=== PATIENT | female | born 1950 | race Caucasian/White ===

== ENCOUNTER 2016-10-10 15:43 | Emergency (ER) | payer OTHER, BC ==
[2016-10-10 15:47] VITALS: TEMP 97.8; BMI 30.9
--- NOTE | 2016-10-10 15:50 | PDOC ---
Rapid Medical Evaluation Time Seen by Provider: 10/10/16 15:44 Medical Evaluation: Allergies Allergy/AdvReac Type Severity Reaction Status Date / Time No Known Allergies Allergy Verified 04/22/14 17:44 10/10/16 15:44 Pt comes with feeling dizzy, lightheaded, and nauseous that began last night. The feeling resolved on it's own. Then her dizzy feeling returned around 11AM today; She feels fatigued and she vomited en route to the hospital. Yesterday routine she went to PMD [facility] but no results yet. She is on eliquis and metoprolol. She has a history of vertigo and this is not like her vertigo-- she has no room spinning now. She is afebrile now. 3 weeks ago pt was sitting on the side of her bed and she felt dizzy and she fell to the ground. She had a CT scan the next day ordered outpatient by her PMD , and that was normal. She will have UA and EKG done in triage. Pt keeps telling her daughter that she doesnt "feel right." She will require workup. Consider testing her TSH. EKG demonstrates AFIB with long pauses. Her site worker is Dr. West. She will require cardio evaluation.
[2016-10-10 16:25] LABS: URINE APPEARANCE SLCLOUDY; URINE BILIRUBIN NEGATIVE (NEGATIVE); URINE COLOR YELLOW; URINE GLUCOSE (UA) NEGATIVE (NEGATIVE); URINE KETONE NEGATIVE (NEGATIVE); URINE NITRITE NEGATIVE (NEGATIVE); URINE UROBILINOGEN NEGATIVE E.U./dl (0.2-1.0)
[2016-10-10 16:29] LABS: URINE BLOOD 1+ (NEGATIVE); URINE LEUK ESTERASE 3+ (NEGATIVE); URINE PROTEIN 2+ (NEGATIVE)
[2016-10-10 16:30] LABS: URINE MUCUS RARE; URINE RBC 17 /hpf (0-3); URINE WBC 25 /hpf (3-5)
[2016-10-10] MEDS ORDERED: SODIUM CHLORIDE 1,000 ML IV STA (16:57)
[2016-10-10] MEDS ORDERED: ONDANSETRON 4 MG/2 ML VIAL IVPUSH ONE (16:57)
[2016-10-10] MEDS ORDERED: MECLIZINE HCL 25 MG TABLET (FP) PO ONE ×2 (16:58→19:20)
[2016-10-10] MEDS ORDERED: MECLIZINE HCL 25 MG TABLET (FP) ONE ×2 (17:32→19:35)
[2016-10-10] MEDS ORDERED: ONDANSETRON 4 MG/2 ML VIAL ONE (17:33)
[2016-10-10 17:54] LABS: BASOPHIL 0.2 % (0-2.0); EOSINOPHIL 0.2 % (0-4.5); MCH 31.2 pg (25.7-33.7); MCHC 33.1 g/dl (32.0-36.0); MEAN CELL VOLUME 94.4 fl (80-96); MEAN PLT VOLUME 8.9 fl (7.5-11.1); NEUTROPHILS 81.7 % (42.8-82.8); PLATELET COUNT 153 K/MM3 (134-434); RDW 12.6 % (11.6-15.6); WHITE BLOOD COUNT 9.1 K/mm3 (4.0-10.0)
--- NOTE | 2016-10-10 17:59 | PDOC ---
History of Present Illness - General History Source: Patient Exam Limitations: No Limitations - History of Present Illness Initial Comments: 10/10/16 18:09 The patient is a 66 year old female, with a significant past medical history of borderline diabetes, vertigo, afib, who presents to the emergency department with dizziness and nausea since yesterday. Daughter reports the patient also has chief complaints of lightheadedness/fatigue and had one episode of vomiting en route to the ER. Daughter also reports her symptoms are often made worse when she stands and walks. Daughter reports the patient collapsing off the edge of the bed hitting her head about 3 weeks ago, she had a negative head CT. She denies recent fevers, chills, headache or dizziness. She denies recent diarrhea or constipation. Allergies: NKA Social History: Nonsmoker. Denies EtOH use and drug use. Family history: Denies Commissary Worker: <Carrillo Bañuelos - Last Filed: 10/10/16 18:09> - General History Source: Patient Exam Limitations: No Limitations <Keri Rosales - Last Filed: 10/11/16 21:12> - General Chief Complaint: Lightheaded Stated Complaint: DIZZINESS, FATIGUE (PCP SENT) Time Seen by Provider: 10/10/16 15:44 Past History <Carrillo Bañuelos - Last Filed: 10/10/16 18:09> - Past Medical History Anemia: No Asthma: No Cancer: No Cardiac Disorders: Yes (PERSISTENT ATRIAL FIBRILLATION) CVA: No COPD: No CHF: No Dementia: No Diabetes: Yes GI Disorders: No Disorders: No HTN: Yes Hypercholesterolemia: Yes Liver Disease: No Seizures: No Thyroid Disease: Yes (H/O MULTINODULAR GOITER) - Surgical History Abdominal Surgery: No Appendectomy: No Cardiac Surgery: Yes (heart valve emboli ablasion) Cholecystectomy: No Lung Surgery: No Neurologic Surgery: No Orthopedic Surgery: No - Psycho/Social/Smoking Cessation Hx Anxiety: No Suicidal Ideation: No Smoking Status: No Smoking History: Never smoked Number of Cigarettes Smoked Daily: 0 Information on smoking cessation initiated: No Hx Alcohol Use: No Drug/Substance Use Hx: No Substance Use Type: None Hx Substance Use Treatment: No <Keri Rosales - Last Filed: 10/11/16 21:12> - Past Medical History Allergies/Adverse Reactions: Allergies Allergy/AdvReac Type Severity Reaction Status Date / Time No Known Allergies Allergy Verified 10/10/16 15:47 Home Medications: Ambulatory Orders Apixaban [Eliquis] 5 mg PO BID 10/10/16 Meclizine HCl [Antivert -] 25 mg PO TID #30 tablet 10/10/16 Metoprolol Succinate [Toprol Xl] 50 mg PO DAILY 10/10/16 Ondansetron [Zofran *Odt*] 4 mg SL TID #30 od.tablet 10/10/16 Review of Systems - Review of Systems Able to Perform ROS?: Yes Comments:: 10/10/16 18:09 GENERAL/CONSTITUTIONAL: +weakness and dizziness . No: fever, chills, loss of appetite. HEAD, EYES, EARS, NOSE AND THROAT: No: change in vision, ear pain, discharge, sore throat, throat swelling. CARDIOVASCULAR: + lightheadedness No: chest pain, palpitations, syncope RESPIRATORY: No: cough, shortness of breath, wheezing, hemoptysis, stridor. GASTROINTESTINAL:+nausea. No: vomiting, diarrhea, abdominal cramping, rectal bleeding, constipation. GENITOURINARY: No: dysuria, hematuria, frequency, urgency, flank pain. MUSCULOSKELETAL: No: back pain, neck pain, joint pain, muscle swelling or pain SKIN : No: lesions, pallor, rash or easy bruising. NEUROLOGIC: No: headache, vertigo, paresthesias, ENDOCRINE: No: unexplained weight gain or loss HEMATOLOGIC/LYMPHATIC: No: anemia, easy bleeding, swelling nodes. <Carrillo Bañuelos - Last Filed: 10/10/16 18:09> *Physical Exam - Vital Signs Last Vital Signs Temp Pulse Resp BP Pulse Ox 97.8 F 85 18 153/92 99 10/10/16 15:44 10/10/16 15:44 10/10/16 15:44 10/10/16 15:44 10/10/16 15:44 - Physical Exam Comments: 10/10/16 18:09 GENERAL: The patient looks ill appearing. HEAD: Normal with no signs of trauma. EYES: PERRLA, EOMI, sclera anicteric, conjunctiva clear. No nystagmus. ENT: Ears normal, nares patent, oropharynx clear without exudates. Moist mucous membranes. NECK: Normal range of motion, supple without lymphadenopathy, JVD, or masses. LUNGS: Breath sounds equal, clear to auscultation bilaterally. No wheezes, and no crackles. HEART: Irregular rate and rhythm, normal S1 and S2 without murmur, rub or gallop. ABDOMEN: Soft, nontender, normoactive bowel sounds. No guarding, no rebound. No masses palpable. EXTREMITIES: Normal range of motion, no edema. No clubbing or cyanosis. No erythema, or tenderness. NEUROLOGICAL: Cranial nerves II through XII grossly intact. Normal speech. No focal neurological deficits. Motor and sensation was normal in all extremities. MUSCULOSKELETAL: Back non-tender to palpation, no CVA tenderness SKIN: Warm, Dry, normal turgor, no rashes or lesions noted. <Carrillo Bañuelos - Last Filed: 10/10/16 18:09> - Vital Signs Last Vital Signs Temp Pulse Resp BP Pulse Ox 97.8 F 85 18 153/92 99 10/10/16 15:44 10/10/16 15:44 10/10/16 15:44 10/10/16 15:44 10/10/16 15:44 <Keri Rosales - Last Filed: 10/11/16 21:12> Heart Score/ECG Review #1 ECG reviewed & interpreted by me at: 18:38 10/10/16 18:38 Atrial fibrillation, rate of 83 bpm, intervals normal including QRS: 86 MS, QTC [address] elevations or depressions, T waves flattened inferiorly <Keri Rosales - Last Filed: 10/11/16 21:12> ED Treatment Course - LABORATORY CBC & Chemistry Diagram: 10/10/16 17:30 10/10/16 17:30 - ADDITIONAL ORDERS Additional order review: Laboratory Results 10/10/16 15:41 Urine Color Yellow Urine Appearance Slcloudy Urine pH 5.0 D Ur Specific [place] 1.019 Urine Protein 2+ H Urine Glucose (UA) Negative Urine Ketones Negative Urine Blood 1+ H Urine Nitrite Negative Urine Bilirubin Negative Urine Urobilinogen Negative Ur Leukocyte Esterase 3+ H D Urine RBC 17 Urine WBC 25 Ur Epithelial Cells Few Urine Mucus Rare 10/10/16 17:30 RBC 4.58 MCV 94.4 MCHC 33.1 RDW 12.6 MPV 8.9 Neutrophils % 81.7 D Lymphocytes % 15.3 D Monocytes % 2.6 L Eosinophils % 0.2 Basophils % 0.2 - Medications Given in the ED: ED Medications Discontinued Medications Generic Name Dose Route Start Last Admin Trade Name Freq PRN Reason Stop Dose Admin Meclizine HCl 25 mg 10/10/16 16:58 10/10/16 17:49 Antivert - PO 10/10/16 16:59 25 mg ONCE ONE Administration Ondansetron HCl 4 mg 10/10/16 16:57 10/10/16 17:49 Zofran Injection IVPUSH 10/10/16 16:58 4 mg ONCE ONE Administration <Carrillo Bañuelos - Last Filed: 10/10/16 18:09> - LABORATORY CBC & Chemistry Diagram: 10/10/16 17:30 10/10/16 17:30 - ADDITIONAL ORDERS Additional order review: Laboratory Results 10/10/16 15:41 Urine Color Yellow Urine Appearance Slcloudy Urine pH 5.0 D Ur Specific [place] 1.019 Urine Protein 2+ H Urine Glucose (UA) Negative Urine Ketones Negative Urine Blood 1+ H Urine Nitrite Negative Urine Bilirubin Negative Urine Urobilinogen Negative Ur Leukocyte Esterase 3+ H D Urine RBC 17 Urine WBC 25 Ur Epithelial Cells Few Urine Mucus Rare - RADIOLOGY Radiology Studies Ordered: Category Date Time Status HEAD CT WITHOUT CONTRAST [CT] Stat CT Scan 10/10/16 16:57 Ordered - Medications Given in the ED: ED Medications Discontinued Medications Generic Name Dose Route Start Last Admin Trade Name Freq PRN Reason Stop Dose Admin Meclizine HCl 25 mg 10/10/16 16:58 10/10/16 17:49 Antivert - PO 10/10/16 16:59 25 mg ONCE ONE Administration Ondansetron HCl 4 mg 10/10/16 16:57 10/10/16 17:49 Zofran Injection IVPUSH 10/10/16 16:58 4 mg ONCE ONE Administration <Keri Rosales - Last Filed: 10/11/16 21:12> Medical Decision Making - Medical Decision Making 10/10/16 17:59 A portion of this note was documented by scribe services under my direction. I have reviewed the details of the note, within reason, and agree with the documentation with the following case summary and management plan written by me. Nursing documentation reviewed and incorporated into medical decision making This is a 66-year-old female with a history of vertigo, [id number] diabetes who presents emergency department with a complaint of "not feeling well " with her daughter. Pt has not been feeling well all day She denies chest pain She denies palpitations, shortness of breath She denies abdominal pain Pt feels nauseous Pt has not vomited Pt feels lightheaded Pt states it is NOT similar to her prior episodes of vertigo as she has no spinning sensation Pt states her symptoms worsen when she stands or lays flat 10/10/16 18:37 Laboratory Tests 10/10/16 10/10/16 10/10/16 15:41 17:30 17:30 WBC 9.1 D Hgb 14.3 Hct 43.2 Plt Count 153 Neutrophils % 81.7 D Lymphocytes % 15.3 D BUN 14 Creatinine 0.6 Random Glucose 130 H Creatine Kinase 57 Troponin I < 0.02 B-Natriuretic Peptide 853.25 H Urine Blood 1+ H Urine Nitrite Negative Ur Leukocyte Esterase 3+ H D Urine RBC 17 Urine WBC 25 10/10/16 18:[address] pending 10/10/16 19:[address] Matilda Villaseñor. CT read as negative, no acute pathology Once pt feels better Can discharge to home Pt can follow up tomorrow with Dr Cole's office Clinical Impression: dizziness Upon re assessment, minimal improvement Will give: Reglan, more IVF, Meclizine Pt signed out to Dr Mejnivar Re assessment If improved can go home If remains the same, contact [facility] re: admission <Keri Rosales - Last Filed: 10/11/16 21:12> *DC/Admit/Observation/Transfer - Attestations Scribe Attestion: 10/10/16 18:09 Documentation prepared by Carrillo Bañuelos, acting as medical territory manager for Keri Rosales MD. <Carrillo Bañuelos - Last Filed: 10/10/16 18:09> - Discharge Dispostion Admit: No <Keri Rosales - Last Filed: 10/11/16 21:12> Diagnosis at time of Disposition: Dizziness - Discharge Dispostion Disposition: HOME Condition at time of disposition: Stable - Prescriptions Prescriptions: Meclizine HCl [Antivert -] 25 mg PO TID #30 tablet Ondansetron [Zofran *Odt*] 4 mg SL TID #30 od.tablet - Referrals Referrals: Khris Cole MD [Primary Care Provider] - - Patient Instructions Printed Discharge Instructions: DI for Dizziness-Nonvertigo Additional Instructions: Lizbet Obrigado por ter vindo ao ER hoje Seus exames de sangue kell normais A tomografia computadorizada no apresenta noa alteraes Analisei os seus resultados com o Dr. Cole Shayna afirma, voc pode ir para casa quando voc est se sentindo melhor Voc pode v-lo no escritrio amanh! Lizbet Thank you for coming in to the ER today Your blood tests were normal Your CT scan shows no new changes I have reviewed your results with Dr Cole He states, you can go home when you are feeling better You can see him in the office tomorrow!
[2016-10-10 18:20] LABS: AMYLASE 44 U/L (25-115); ANION GAP 10 (8-16); CO2 26 mmol/L (21-32); CREATININE 0.6 mg/dL (0.55-1.02); GLUCOSE,RANDOM 130 mg/dL (74-106); SGOT/AST 22 U/L (15-37); SGPT/ALT 35 U/L (12-78)
[2016-10-10 18:25] LABS: ALK PHOS 95 U/L (45-117); BILIRUBIN,TOTAL 0.5 mg/dL (0.2-1.0); TOT PROT 7.5 g/dl (6.4-8.2); TROPONIN I < 0.02 ng/ml (0.00-0.05)
[2016-10-10] MEDS ORDERED: METOCLOPRAMIDE HCL INJECTION 10 MG/2 ML VIAL IVPB ONE (19:20)
[2016-10-10] MEDS ORDERED: METOCLOPRAMIDE HCL INJECTION 10 MG/2 ML VIAL ONE (19:35)
[2016-10-10 19:52] VITALS: BP 145/99; PULSE 100
--- NOTE | 2016-10-10 21:34 | PDOC ---
*Physical Exam - Vital Signs Last Vital Signs Temp Pulse Resp BP Pulse Ox 97.8 F 100 H 18 145/99 100 10/10/16 15:44 10/10/16 19:51 10/10/16 19:51 10/10/16 19:51 10/10/16 19:51 ED Treatment Course - LABORATORY CBC & Chemistry Diagram: 10/10/16 17:30 10/10/16 17:30 - ADDITIONAL ORDERS Additional order review: Laboratory Results 10/10/16 10/10/16 17:30 15:41 Sodium 136 Potassium 4.1 Chloride 100 Carbon Dioxide 26 Anion Gap 10 BUN 14 Creatinine 0.6 Creat Clearance w eGFR > 60 Random Glucose 130 H Calcium 9.0 Total Bilirubin 0.5 AST 22 ALT 35 Alkaline Phosphatase 95 Creatine Kinase 57 Troponin I < 0.02 B-Natriuretic Peptide 853.25 H Total Protein 7.5 Albumin 4.0 Total Amylase 44 Lipase 129 Urine Color Yellow Urine Appearance Slcloudy Urine pH 5.0 D Ur Specific [place] 1.019 Urine Protein 2+ H Urine Glucose (UA) Negative Urine Ketones Negative Urine Blood 1+ H Urine Nitrite Negative Urine Bilirubin Negative Urine Urobilinogen Negative Ur Leukocyte Esterase 3+ H D Urine RBC 17 Urine WBC 25 Ur Epithelial Cells Few Urine Mucus Rare 10/10/16 17:30 RBC 4.58 MCV 94.4 MCHC 33.1 RDW 12.6 MPV 8.9 Neutrophils % 81.7 D Lymphocytes % 15.3 D Monocytes % 2.6 L Eosinophils % 0.2 Basophils % 0.2 - Medications Given in the ED: ED Medications Discontinued Medications Generic Name Dose Route Start Last Admin Trade Name Angela PRN Reason Stop Dose Admin Meclizine HCl 25 mg 10/10/16 16:58 10/10/16 17:49 Antivert - PO 10/10/16 16:59 25 mg ONCE ONE Administration Meclizine HCl 50 mg 10/10/16 19:20 10/10/16 19:51 Antivert - PO 10/10/16 19:21 50 mg ONCE ONE Administration Metoclopramide HCl 10 mg 10/10/16 19:20 10/10/16 19:51 Reglan Injection - IVPB 10/10/16 19:21 10 mg ONCE ONE Administration Ondansetron HCl 4 mg 10/10/16 16:57 10/10/16 17:49 Zofran Injection IVPUSH 10/10/16 16:58 4 mg ONCE ONE Administration Medical Decision Making - Medical Decision Making 10/10/16 21:31 Pt now feels better. Pt will be discharged Rx Meclizine 25mg PO, Zofran 4mg PO. Pt to follow up her pcp *DC/Admit/Observation/Transfer Diagnosis at time of Disposition: Dizziness - Discharge Dispostion Disposition: HOME Condition at time of disposition: Stable Admit: No - Prescriptions Prescriptions: Meclizine HCl [Antivert -] 25 mg PO TID #30 tablet Ondansetron [Zofran *Odt*] 4 mg SL TID #30 od.tablet - Referrals Referrals: Khris Cole MD [Primary Care Provider] - - Patient Instructions Printed Discharge Instructions: DI for Dizziness-Nonvertigo Additional Instructions: Lizbet Obrigado por ter vindo ao ER hoje Seus exames de sangue kell normais A tomografia computadorizada no apresenta noa alteraes Analisei os seus resultados com o Dr. Cole Shayna afirma, voc pode ir para casa quando voc est se sentindo melhor Voc pode v-lo no escritrio amanh! Lizbet Thank you for coming in to the ER today Your blood tests were normal Your CT scan shows no new changes I have reviewed your results with Dr Cole He states, you can go home when you are feeling better You can see him in the office tomorrow! - Post Discharge Activity
--- NOTE | 2016-10-11 14:10 | EKG ---
Test Reason : Blood Pressure : / mmHG Vent. Rate : 083 BPM Atrial Rate : 107 BPM P-R Int : 000 ms QRS Dur : 086 ms QT Int : 390 ms P-R-T Axes : 000 051 031 degrees QTc Int : 458 ms ATRIAL FIBRILLATION NONSPECIFIC ST ABNORMALITY ABNORMAL ECG WHEN COMPARED WITH ECG OF 22-APR-2014 18:19, NO SIGNIFICANT CHANGE WAS FOUND Confirmed by KEITH FOFANA MD ([id number]) on 10/11/2016 2:09:57 PM Referred By: Confirmed By:KEITH FOFANA MD
== END 2016-10-10 21:48 | disposition home or self-care (01) ==
LOC: JER 15:43
PROC: 3E033GC Introduction of Other Therapeutic Substance into Peripheral Vein, Percutaneous Approach (ICD-10-PCS; principal; 2016-10-10)
PROC: 3E0337Z Introduction of Electrolytic and Water Balance Substance into Peripheral Vein, Percutaneous Approach (ICD-10-PCS; 2016-10-10)
DX: R42 Dizziness and giddiness (principal); I48.91 Unspecified atrial fibrillation; I10 Essential (primary) hypertension; E78.00 Pure hypercholesterolemia, unspecified; E07.9 Disorder of thyroid, unspecified; I51.9 Heart disease, unspecified
CPT/HCPCS: 36415; 70450-TC; 71020-TC; 80053; 81003; 81015; 82150; 82550; 83690; 83880; 84484; 85025; 87086; 93005; 93010; 96361; 96374; 96375; 99283-25

== ENCOUNTER 2017-05-11 11:56 | Inpatient (IN) | payer OTHER, BC ==
[2017-05-11 12:06] VITALS: BMI 29.2
--- NOTE | 2017-05-11 12:30 | PDOC ---
History of Present Illness - General Chief Complaint: Respiratory Stated Complaint: SOB Time Seen by Provider: 05/11/17 12:28 - History of Present Illness Initial Comments: 66 year old Uzbek speaking female with PMH of Afib (on eliquis), HTN, and borderline diabetes presenting with 10 days of lethargy, productive cough, nausea, and myalgias. Shew was seen by Dr. Cole 10 days prior and given some antibiotic despite a negative CXR. Does nto recall the antibiotic name but admits to some minor relief and cough improvement while on it. She was seen by [facility] today who recommended she come to the ED for further evaluation. Denies vomiting, chest pain, diarrhea, urinary symptoms, fevers, or sick contacts. Her last trip to [facility] was in January. Has not gotten her flu shot this year. 05/11/17 12:43 Past History - Past Medical History Allergies/Adverse Reactions: Allergies Allergy/AdvReac Type Severity Reaction Status Date / Time No Known Allergies Allergy Verified 05/11/17 14:02 Home Medications: Ambulatory Orders Apixaban [Eliquis] 5 mg PO BID 10/10/16 Metoprolol Succinate [Toprol Xl] 50 mg PO DAILY 10/10/16 Fluticasone Prop 0.05% Nasal [Flonase -] 1 spray NS DAILY 05/11/17 Anemia: No Asthma: No Cancer: No Cardiac Disorders: Yes (PERSISTENT ATRIAL FIBRILLATION) CVA: No COPD: No CHF: No Dementia: No Diabetes: Yes GI Disorders: No Disorders: No HTN: Yes Hypercholesterolemia: Yes Liver Disease: No Seizures: No Thyroid Disease: Yes (H/O MULTINODULAR GOITER) - Surgical History Abdominal Surgery: No Appendectomy: No Cardiac Surgery: Yes (heart valve emboli ablasion) Cholecystectomy: No Lung Surgery: No Neurologic Surgery: No Orthopedic Surgery: No - Suicide/Smoking/Psychosocial Hx Smoking Status: No Smoking History: Never smoked Number of Cigarettes Smoked Daily: 0 Hx Alcohol Use: No Drug/Substance Use Hx: No Substance Use Type: None Hx Substance Use Treatment: No Review of Systems - Review of Systems Constitutional: No: Chills, Diaphoresis, Fever HEENTM: No: Eye Pain, Blurred Vision, Tearing Respiratory: Yes: Cough, Shortness of Breath, Wheezing Cardiac (ROS): No: Palpitations, Chest Tightness ABD/GI: Yes: Nausea, Poor Appetite. No: Constipated, Diarrhea, Vomiting : No: Burning, Dysuria Neurological: No: Headache *Physical Exam - Vital Signs Last Vital Signs Temp Pulse Resp BP Pulse Ox 98.2 F 94 H 18 127/65 95 05/11/17 12:03 05/11/17 12:03 05/11/17 12:03 05/11/17 12:03 05/11/17 12:03 - Physical Exam General Appearance: Yes: Nourished, Appropriately Dressed. No: Apparent Distress HEENT: positive: EOMI, WILSON, Normal Voice. negative: Normal ENT Inspection ( Mucous in the posterior oropharynx with slightly dry mucous membranes) Neck: positive: Trachea midline, Normal Thyroid, Supple. negative: Tender, Rigid Respiratory/Chest: negative: Chest Tender, Lungs Clear (Rhonchi and wheezes bilaterally ), Normal Breath Sounds, Respiratory Distress, Accessory Muscle Use ED Treatment Course - LABORATORY CBC & Chemistry Diagram: 05/11/17 13:00 05/11/17 13:00 Medical Decision Making - Medical Decision Making 66 year old female with reparatory symptoms and rhonchi with wheezing presetnitn for her PCP's office. WBC 12.1. CURB 65 score only positive for age so overall low risk. CXR not showing any significant pathology. BNP pending. Patient still rhonchorous after a dose of nebs and steroids. Will redose nebs and admit to obs with a chest CT without con. Will give one dose abx as well for presumed PNA. 05/11/17 14:33 *DC/Admit/Observation/Transfer Diagnosis at time of Disposition: PNA (pneumonia) - Discharge Dispostion Condition at time of disposition: Stable Admit: Yes
[2017-05-11] MEDS ORDERED: predniSONE 20 MG TABLET (UD) PO ONE (12:44)
[2017-05-11] MEDS ORDERED: ALBUTEROL SO4 2.5/IPRATROPIUM 0.5 INH SOL 3 ML VIAL.NEB. NEB ONE ×4 (12:45→14:48)
[2017-05-11] MEDS ORDERED: SODIUM CHLORIDE 0.9% 1000 ML INFUS.BAG IV ONE (12:58)
[2017-05-11] MEDS ORDERED: predniSONE 20 MG TABLET (UD) ONE (13:14)
[2017-05-11 13:22] LABS: VENOUS BLOOD GAS HCO3 23.3 meq/L (19-25)
[2017-05-11 13:23] LABS: VENOUS PH 7.47 (7.32-7.42)
[2017-05-11 13:23] LABS: BASOPHIL 0.1 % (0-2.0); EOSINOPHIL 0.2 % (0-4.5); MCH 30.4 pg (25.7-33.7); MCHC 32.7 g/dl (32.0-36.0); MEAN CELL VOLUME 92.8 fl (80-96); MEAN PLT VOLUME 9.1 fl (7.5-11.1); NEUTROPHILS 68.2 % (42.8-82.8); PLATELET COUNT 164 K/MM3 (134-434); RDW 12.6 % (11.6-15.6); WHITE BLOOD COUNT 12.3 K/mm3 (4.0-10.0)
[2017-05-11 13:56] LABS: CALCIUM 9.3 mg/dL (8.5-10.1)
[2017-05-11 14:01] LABS: ALK PHOS 113 U/L (45-117); ANION GAP 9 (8-16); BILIRUBIN,TOTAL 1.3 mg/dL (0.2-1.0); CO2 24 mmol/L (21-32); CREATININE 0.6 mg/dL (0.55-1.02); GLUCOSE,RANDOM 99 mg/dL (74-106); SGOT/AST 19 U/L (15-37); SGPT/ALT 41 U/L (12-78); TOT PROT 7.8 g/dl (6.4-8.2)
--- NOTE | 2017-05-11 14:21 | PDOC ---
Attending Attestation - Resident Resident Name: Elroy Bravo - ED Attending Attestation I have performed the following: I have examined & evaluated the patient, The case was reviewed & discussed with the resident, I agree w/resident's findings & plan, Exceptions are as noted - Medical Decision Making 05/11/17 14:18 A portion of this note was written by my scribe, under my supervision. Vital Signs Temp Pulse Resp BP Pulse Ox 98.2 F 94 H 18 127/65 96 05/11/17 12:03 05/11/17 12:03 05/11/17 12:03 05/11/17 12:03 05/11/17 12:30 66-year-old female with past medical history of hypertension, diabetes, coronary disease, atrial fibrillation on eliquis p/w cough x 10 days. Denies sick contacts or recent travels. +productive cough with generalized body aches. No difficulty breathing. Is currently on Day 4 of 5 on azithromycin but not improving. Pt sent in by her doctor. R/o PNA. Sepsis protocol initiated. Chest xray. Labs, reassess. <Mahmaed Fernandes - Last Filed: 05/11/17 14:21> - HPI HPI: 05/11/17 15:03 Patient is a 66 year old female with a significant past medical history of HTN, borderline diabetes, vertigo, afib who presents to the ED with complaints of chronic cough that began 10 days ago. Patient reports cough began 10 days ago while at home with no sign of relief. She reports going to PCP for cough 10 days ago and was prescribed Z pack for cough. Patient states she is on her 5th day of her Z pack with minimal relief. She reports cough is productive with phlegm productive with yellowish coloration. Patient reports she has experienced intermittent nausea, and loss of appetite secondary to cough. She reports experiencing never and slight wheezing secondary to cough. Patient states her grand daughter is also sick. Denies chest pain, SOB. Denies fever, chills, Denies any other symptoms. Allergies: None Surgical history: heart valve emboli ablation Social history: Lives at home with . No smoking. No alcohol. No illicit drugs. PMD: Dr. Cole Mail Processor Dr. Wood - Physicial Exam PE: 05/11/17 15:03 GENERAL: Awake, alert, and fully oriented, in no acute distress HEAD: No signs of trauma EYES: PERRLA, EOMI, sclera anicteric, conjunctiva clear ENT: Auricles normal inspection, hearing grossly normal, nares patent, oropharynx clear without exudates. Moist mucosa NECK: Normal ROM, supple, no lymphadenopathy, JVD, or masses LUNGS: +Wheezing bilaterally. +Bronchus bilaterally Breath sounds equal, clear to auscultation bilaterally. No wheezes, and no crackles HEART: Regular rate and rhythm, normal S1 and S2, no murmurs, rubs or gallops ABDOMEN: Soft, nontender, normoactive bowel sounds. No guarding, no rebound. No masses EXTREMITIES: Normal range of motion, no edema. No clubbing or cyanosis. No cords, erythema, or tenderness NEUROLOGICAL: Cranial nerves II through XII grossly intact. Normal speech, normal gait SKIN: Warm, Dry, normal turgor, no rashes or lesions noted. - Medical Decision Making 05/11/17 15:03 Documentation prepared by Joshua Crouch, acting as medical chief technician for Mahamed Fernandes MD. <Joshua Crouch - Last Filed: 05/11/17 15:03> Heart Score/ECG Review #1 ECG reviewed & interpreted by me at: 13:45 05/11/17 14:21 atrial fibrillation 96, no std/frandy, QTC 492 msec <Mahamed Fernandes - Last Filed: 05/11/17 14:21>
[2017-05-11 14:48] LABS: CPK 40 IU/L (26-192); TROPONIN I < 0.02 ng/ml (0.00-0.05)
--- NOTE | 2017-05-11 16:34 | CONSULT ---
Consult - Alcohol/Substance Use Hx Alcohol Use: No - Smoking History Smoking history: Never smoked Aproximately how many cigarettes per day: 0 Home Medications - Allergies Allergies/Adverse Reactions: Allergies Allergy/AdvReac Type Severity Reaction Status Date / Time No Known Allergies Allergy Verified 05/11/17 14:02 - Home Medications Home Medications: Ambulatory Orders Apixaban [Eliquis] 5 mg PO BID 10/10/16 Metoprolol Succinate [Toprol Xl] 50 mg PO DAILY 10/10/16 Fluticasone Prop 0.05% Nasal [Flonase -] 1 spray NS DAILY 05/11/17 Physical Exam Vital Signs: Vital Signs Temperature 98.2 F 05/11/17 12:03 Pulse Rate 94 H 05/11/17 12:03 Respiratory Rate 18 05/11/17 12:03 Blood Pressure 127/65 05/11/17 12:03 O2 Sat by Pulse Oximetry (%) 96 05/11/17 12:30
[2017-05-11] MEDS ORDERED: AZITHROMYCIN IVPB 250 ML IVPB ONE (16:38)
[2017-05-11] MEDS ORDERED: CEFTRIAXONE 50 ML ONE (16:38)
--- NOTE | 2017-05-11 16:41 | HP ---
Admitting History and Physical - Admission Chief Complaint: 66 yo F initially seen at the office at the office for cough, sweats, weakness She was rx with Zithromax and cough syrup and her xhest Xray was negative. The patient presented with sweats, worsening SOB/BARONE, hypotension, anorrhexia and weakness and dizziness with B/l R>L rales in the LL on auscultation and was sent to ER [facility]. In the ER CBC showed leukocytosis with CXR-increased B/B markings and CT chest NC-bibasilar patchy infiltrates. The patient was admitted for further management History of Present Illness: Chronic A.FIB on Eliquis. HTN History Source: Patient, Medical Record Limitations to Obtaining History: No Limitations - Past Medical History Cardiovascular: Yes: AFIB, HTN Pulmonary: No: Asthma, Cancer, COPD, O2 Dependent, Pulmonary Fibrosis Gastrointestinal: No: Ascites, Cancer, Crohn's Disease, Diverticulitis Hepatobiliary: No: Cirrhosis, Cholelithiasis, Cholecystitis, Choledocholithiasis , Hepatitis A, Hepatitis B, Hepatitis C, Other Renal/: No: Renal Failure, Renal Inusuff, BPH, Cancer, Hematuria, Hemodialysis , Neurogenic Bladder, Renal Calculi, UTI, Other Reproductive: Yes: Postmenopausal Infectious Disease: No: AIDS, C-Diff, Herpes Zoster, HIV, MRSA, STD's, Tuberculosis, VREF, Other Psych: No: Addictions, Anxiety, Bipolar, Depression, Panic, Psychosis, Schizophrenia, Other Rheumatology: No: Fibromyalgia, Gout, Lupus, Rheumatoid Arthritis, Sarcoidosis, Vasculitis, Other Endocrine: No: [place]'s Disease, Sheron's Disease, Diabetes Insipidus, Diabetes Mellitus, Hyperparathyroidism, Hyperthyroidism, Hypothyroidism, Osteopenia, SIADH, Other Dermatology: No: Basal Cell, Cellulitis, Eczema, Melanoma, Psoriasis, Squamous Cell, Other - Smoking History Smoking history: Never smoked Aproximately how many cigarettes per day: 0 - Alcohol/Substance Use Hx Alcohol Use: No Home Medications - Allergies Allergies/Adverse Reactions: Allergies Allergy/AdvReac Type Severity Reaction Status Date / Time No Known Allergies Allergy Verified 05/11/17 14:02 - Home Medications Home Medications: Ambulatory Orders Apixaban [Eliquis] 5 mg PO BID 10/10/16 Metoprolol Succinate [Toprol Xl] 50 mg PO DAILY 10/10/16 Fluticasone Prop 0.05% Nasal [Flonase -] 1 spray NS DAILY 05/11/17 Family Disease History - Family Disease History Family History: Unremarkable Review of Systems - Review of Systems Constitutional: reports: Diaphoresis, Loss of Appetite, Malaise, Night Sweats, Weakness Eyes: reports: No Symptoms HENT: reports: No Symptoms Neck: reports: No Symptoms Cardiovascular: reports: Shortness of Breath. denies: Chest Pain, Edema, Palpitations Respiratory: reports: Cough, SOB, SOB on Exertion. denies: Hemoptysis, Snoring , Wheezing Gastrointestinal: reports: No Symptoms Genitourinary: reports: No Symptoms Breasts: reports: No Symptoms Reported Musculoskeletal: reports: No Symptoms Integumentary: reports: No Symptoms Neurological: reports: No Symptoms Endocrine: reports: No Symptoms Hematology/Lymphatic: reports: No Symptoms Psychiatric: reports: No Symptoms Physical Examination Vital Signs: Vital Signs Temperature 98.2 F 05/11/17 12:03 Pulse Rate 94 H 05/11/17 12:03 Respiratory Rate 18 05/11/17 12:03 Blood Pressure 127/65 05/11/17 12:03 O2 Sat by Pulse Oximetry (%) 96 05/11/17 12:30 Constitutional: Yes: Anxious, Diaphoresis, Moderate Distress, Pallor. No: Obese Eyes: Yes: Conjunctiva Clear, EOM Intact, PERRL HENT: Yes: Atraumatic, Normocephalic Neck: Yes: Supple, Trachea Midline Cardiovascular: Yes: Tachycardia, Pulse Irregular, Murmur. No: JVD Respiratory: Yes: Rales (RLL>LLL), SOB Gastrointestinal: Yes: Normal Bowel Sounds, Soft. No: Abdomen, Obese, Ascites ...Rectal Exam: Yes: Deferred Renal/: No: Anuria, Bladder Distention, CVA Tenderness - Left, CVA Tenderness - Right Breast(s): Yes: WNL Musculoskeletal: Yes: WNL Extremities: Yes: WNL. No: Amputation Edema: No Integumentary: Yes: WNL Neurological: Yes: Alert, Oriented ...Motor Strength: WNL Psychiatric: Yes: WNL Labs: Laboratory Results - last 24 hr 05/11/17 05/11/17 05/11/17 13:00 13:00 13:05 WBC 12.3 H D RBC 4.91 Hgb 14.9 Hct 45.5 H MCV 92.8 MCH 30.4 MCHC 32.7 RDW 12.6 Plt Count 164 MPV 9.1 Neutrophils % 68.2 Lymphocytes % 24.5 D Monocytes % 7.0 D Eosinophils % 0.2 Basophils % 0.1 VBG pH POC VBG pCO2 POC VBG pO2 Mixed VBG HCO3 Sodium 136 Potassium 3.9 Chloride 103 Carbon Dioxide 24 Anion Gap 9 BUN 14 Creatinine 0.6 Creat Clearance w eGFR > 60 Random Glucose 99 D Lactic Acid 0.9 Calcium 9.3 Total Bilirubin 1.3 H D AST 19 ALT 41 Alkaline Phosphatase 113 Creatine Kinase 40 Troponin I < 0.02 B-Natriuretic Peptide 990.45 H Total Protein 7.8 Albumin 4.0 05/11/17 13:10 WBC RBC Hgb Hct MCV MCH MCHC RDW Plt Count MPV Neutrophils % Lymphocytes % Monocytes % Eosinophils % Basophils % VBG pH 7.47 H POC VBG pCO2 32.1 L POC VBG pO2 67.8 H Mixed VBG HCO3 23.3 Sodium Potassium Chloride Carbon Dioxide Anion Gap BUN Creatinine Creat Clearance w eGFR Random Glucose Lactic Acid Calcium Total Bilirubin AST ALT Alkaline Phosphatase Creatine Kinase Troponin I B-Natriuretic Peptide Total Protein Albumin Imaging - Results X-ray: Report Reviewed Cat Scan: Report Reviewed, Image Reviewed Problem List - Problems (1) PNA (pneumonia) Assessment/Plan: CAP multilobar -r/o atypical, pneumococcus etc.vs viral IV ABX -ceftriaxone/Zithromax IV Code(s): J18.9 - PNEUMONIA, UNSPECIFIED ORGANISM Qualifiers: Pneumonia type: due to unspecified organism Laterality: bilateral Lung location: lower lobe of lung Qualified Code(s): J18.9 - Pneumonia, unspecified organism; J18.9 - Pneumonia, unspecified organism (2) A-fib Assessment/Plan: Rate control, A/c with Eliquis continue. Code(s): I48.91 - UNSPECIFIED ATRIAL FIBRILLATION Qualifiers: Atrial fibrillation type: chronic Qualified Code(s): I48.2 - Chronic atrial fibrillation; I48.2 - Chronic atrial fibrillation; I48.2 - Chronic atrial fibrillation; I48.2 - Chronic atrial fibrillation (3) CHF (congestive heart failure), NYHA class I Assessment/Plan: Follow the patientfor worsening of CHF. Concider KAREN/ARB when BP stable Code(s): I50.9 - HEART FAILURE, UNSPECIFIED Qualifiers: Congestive heart failure type: diastolic Congestive heart failure chronicity: acute on chronic Qualified Code(s): I50.33 - Acute on chronic diastolic (congestive) heart failure; I50.33 - Acute on chronic diastolic (congestive) heart failure; I50.33 - Acute on chronic diastolic ( congestive) heart failure; I50.33 - Acute on chronic diastolic (congestive) heart failure
[2017-05-11 17:04] LABS: URINE APPEARANCE CLEAR; URINE BILIRUBIN NEGATIVE (NEGATIVE); URINE BLOOD 1+ (NEGATIVE); URINE COLOR LTYELLOW; URINE GLUCOSE (UA) NEGATIVE (NEGATIVE); URINE KETONE TRACE (NEGATIVE); URINE NITRITE NEGATIVE (NEGATIVE); URINE PROTEIN NEGATIVE (NEGATIVE); URINE UROBILINOGEN NEGATIVE mg/dL (0.2-1.0)
[2017-05-11 17:12] LABS: URINE BACTERIA RARE /hpf (NONE SEEN); URINE RBC 1 /hpf (0-3); URINE WBC 4 /hpf (3-5)
[2017-05-11] MEDS: ALBUTEROL SO4 2.5/IPRATROPIUM 0.5 INH SOL 3 ML VIAL.NEB. NEB SCH ×2 (18:08→23:09)
[2017-05-11] MEDS: APIXABAN 5 MG TABLET PO SCH (21:40)
[2017-05-11 22:15] LABS: URINE LEUK ESTERASE 1+ (NEGATIVE)
[2017-05-12] MEDS: ALBUTEROL SO4 2.5/IPRATROPIUM 0.5 INH SOL 3 ML VIAL.NEB. NEB SCH ×4 (06:58→23:17)
[2017-05-12 07:14] LABS: BASOPHIL 0.1 % (0-2.0); EOSINOPHIL 0.1 % (0-4.5); MCHC 33.1 g/dl (32.0-36.0); MEAN CELL VOLUME 93.4 fl (80-96); MEAN PLT VOLUME 9.1 fl (7.5-11.1); NEUTROPHILS 67.5 % (42.8-82.8); PLATELET COUNT 167 K/MM3 (134-434); RDW 12.7 % (11.6-15.6); WHITE BLOOD COUNT 10.8 K/mm3 (4.0-10.0)
[2017-05-12 07:22] LABS: ALBUMIN 3.7 g/dl (3.4-5.0); ANION GAP 11 (8-16); CALCIUM 9.1 mg/dL (8.5-10.1); CO2 26 mmol/L (21-32); GLUCOSE,RANDOM 108 mg/dL (74-106)
[2017-05-12 07:25] LABS: ALK PHOS 101 U/L (45-117); BILIRUBIN,TOTAL 0.9 mg/dL (0.2-1.0); CREATININE 0.7 mg/dL (0.55-1.02); PHOSPHOROUS 3.4 mg/dL (2.5-4.9); SGOT/AST 14 U/L (15-37); SGPT/ALT 35 U/L (12-78); TOT PROT 7.5 g/dl (6.4-8.2)
--- NOTE | 2017-05-12 08:15 | PN ---
Progress Note, Physician Chief Complaint: C/o weakness, cough, SOB, sweats. History of Present Illness: Chronic a.fib CHF HTN - Current Medication List Current Medications: Active Medications Albuterol/Ipratropium (Duoneb -) 1 amp NEB QIDR [facility] Last Admin: 05/12/17 06:58 Dose: 1 amp Apixaban (Eliquis -) 5 mg PO BID [facility] Last Admin: 05/11/17 21:40 Dose: 5 mg Azithromycin (Zithromax 500mg Ivpb (Pre-Docked)) 500 mg IVPB DAILY [facility] Fluticasone Propionate (Flonase -) 1 spray NS DAILY [facility] Ceftriaxone Sodium 1 gm/ (Dextrose) 100 mls @ 200 mls/hr IVPB DAILY [facility] Metoprolol Succinate (Toprol Xl -) 50 mg PO DAILY [facility] - Objective Vital Signs: Vital Signs Temperature 98.0 F 05/12/17 06:00 Pulse Rate 91 H 05/12/17 06:00 Respiratory Rate 18 05/12/17 06:00 Blood Pressure 124/95 05/12/17 06:00 O2 Sat by Pulse Oximetry (%) 96 05/11/17 21:00 Constitutional: Yes: Anxious, Mild Distress Eyes: Yes: Conjunctiva Clear, EOM Intact HENT: Yes: Atraumatic, Normocephalic Neck: Yes: Supple, Trachea Midline. No: Lymphadenopathy Cardiovascular: Yes: Pulse Irregular, S1, S2. No: JVD Respiratory: Yes: Diminished (B/B), On Nasal O2, Rales (Bibasilar, R>L) Gastrointestinal: Yes: Normal Bowel Sounds. No: Ascites, Palpable Mass, Tenderness ...Rectal Exam: Yes: Deferred Genitourinary: No: Anuria Breast(s): Yes: WNL Musculoskeletal: Yes: WNL Extremities: Yes: WNL Edema: No Peripheral Pulses WNL: Yes Integumentary: Yes: WNL Neurological: Yes: Alert, Oriented. No: Aphasia, Ataxia, Dysarthria ...Motor Strength: WNL Psychiatric: Yes: WNL Labs: CBC, BMP 05/12/17 06:00 05/12/17 06:00 Laboratory Results - last 24 hr 05/11/17 05/11/17 05/11/17 13:00 13:00 13:05 WBC 12.3 H D RBC 4.91 Hgb 14.9 Hct 45.5 H MCV 92.8 MCH 30.4 MCHC 32.7 RDW 12.6 Plt Count 164 MPV 9.1 Neutrophils % 68.2 Lymphocytes % 24.5 D Monocytes % 7.0 D Eosinophils % 0.2 Basophils % 0.1 VBG pH POC VBG pCO2 POC VBG pO2 Mixed VBG HCO3 Sodium 136 Potassium 3.9 Chloride 103 Carbon Dioxide 24 Anion Gap 9 BUN 14 Creatinine 0.6 Creat Clearance w eGFR > 60 Random Glucose 99 D Lactic Acid 0.9 Calcium 9.3 Phosphorus Total Bilirubin 1.3 H D AST 19 ALT 41 Alkaline Phosphatase 113 Creatine Kinase 40 Troponin I < 0.02 B-Natriuretic Peptide 990.45 H Total Protein 7.8 Albumin 4.0 Urine Color Urine Appearance Urine pH Ur Specific Vian Urine Protein Urine Glucose (UA) Urine Ketones Urine Blood Urine Nitrite Urine Bilirubin Urine Urobilinogen Ur Leukocyte Esterase Urine RBC Urine WBC Ur Epithelial Cells Urine Bacteria 05/11/17 05/11/17 05/12/17 13:10 16:50 06:00 WBC 10.8 H RBC 4.67 Hgb 14.4 Hct 43.6 MCV 93.4 MCH 31.0 MCHC 33.1 RDW 12.7 Plt Count 167 MPV 9.1 Neutrophils % 67.5 Lymphocytes % 26.0 Monocytes % 6.3 Eosinophils % 0.1 Basophils % 0.1 VBG pH 7.47 H POC VBG pCO2 32.1 L POC VBG pO2 67.8 H Mixed VBG HCO3 23.3 Sodium Potassium Chloride Carbon Dioxide Anion Gap BUN Creatinine Creat Clearance w eGFR Random Glucose Lactic Acid Calcium Phosphorus Total Bilirubin AST ALT Alkaline Phosphatase Creatine Kinase Troponin I B-Natriuretic Peptide Total Protein Albumin Urine Color Ltyellow Urine Appearance Clear Urine pH 6.0 Ur Specific Vian 1.010 Urine Protein Negative Urine Glucose (UA) Negative Urine Ketones Trace H Urine Blood 1+ H Urine Nitrite Negative Urine Bilirubin Negative Urine Urobilinogen Negative Ur Leukocyte Esterase 1+ H Urine RBC 1 Urine WBC 4 Ur Epithelial Cells Rare Urine Bacteria Rare 05/12/17 06:00 WBC RBC Hgb Hct MCV MCH MCHC RDW Plt Count MPV Neutrophils % Lymphocytes % Monocytes % Eosinophils % Basophils % VBG pH POC VBG pCO2 POC VBG pO2 Mixed VBG HCO3 Sodium 139 Potassium 3.7 Chloride 102 Carbon Dioxide 26 Anion Gap 11 BUN 14 Creatinine 0.7 Creat Clearance w eGFR > 60 Random Glucose 108 H Lactic Acid Calcium 9.1 Phosphorus 3.4 Total Bilirubin 0.9 D AST 14 L D ALT 35 Alkaline Phosphatase 101 Creatine Kinase Troponin I B-Natriuretic Peptide Total Protein 7.5 Albumin 3.7 Urine Color Urine Appearance Urine pH Ur Specific Vian Urine Protein Urine Glucose (UA) Urine Ketones Urine Blood Urine Nitrite Urine Bilirubin Urine Urobilinogen Ur Leukocyte Esterase Urine RBC Urine WBC Ur Epithelial Cells Urine Bacteria Problem List - Problems (1) PNA (pneumonia) Assessment/Plan: CAP multilobar -r/o atypical, pneumococcus etc.vs viral IV ABX -ceftriaxone/Zithromax IV Code(s): J18.9 - PNEUMONIA, UNSPECIFIED ORGANISM Qualifiers: Pneumonia type: due to unspecified organism Laterality: bilateral Lung location: lower lobe of lung Qualified Code(s): J18.9 - Pneumonia, unspecified organism; J18.9 - Pneumonia, unspecified organism (2) A-fib Assessment/Plan: Rate control, A/c with Eliquis continue. Code(s): I48.91 - UNSPECIFIED ATRIAL FIBRILLATION Qualifiers: Atrial fibrillation type: chronic Qualified Code(s): I48.2 - Chronic atrial fibrillation; I48.2 - Chronic atrial fibrillation; I48.2 - Chronic atrial fibrillation; I48.2 - Chronic atrial fibrillation (3) CHF (congestive heart failure), NYHA class I Assessment/Plan: Follow the patientfor worsening of CHF. Concider KAREN/ARB when BP stable Code(s): I50.9 - HEART FAILURE, UNSPECIFIED Qualifiers: Congestive heart failure type: diastolic Congestive heart failure chronicity: acute on chronic Qualified Code(s): I50.33 - Acute on chronic diastolic (congestive) heart failure; I50.33 - Acute on chronic diastolic (congestive) heart failure; I50.33 - Acute on chronic diastolic ( congestive) heart failure; I50.33 - Acute on chronic diastolic (congestive) heart failure
[2017-05-12] MEDS ORDERED: AZITHROMYCIN IVPB 500 MG/250 ML D5W PRE-DOCKED IVPB SCH (10:00)
[2017-05-12] MEDS ORDERED: CEFTRIAXONE 1 GM in DEXTROSE 5%-WATER - 100 ML IVPB SCH (10:00)
[2017-05-12] MEDS ORDERED: AZITHROMYCIN IVPB 500 MG in DEXTROSE 5%-WATER - 250 ML IVPB SCH (10:00)
[2017-05-12] MEDS ORDERED: PT OWN MED DRAWER 7, Y5N ONE ×3 (10:16→20:20)
[2017-05-12] MEDS ORDERED: DEXTROSE 5%-WATER 100 ML IVPB ONE (10:17)
[2017-05-12] MEDS ORDERED: cefTRIAXone SODIUM 1 GM VIAL ONE (10:17)
[2017-05-12] MEDS: CEFTRIAXONE 1 GM in DEXTROSE 5%-WATER 100 ML IVPB SCH (10:19)
[2017-05-12] MEDS: FLUTICASONE PROP 0.05% 16 GM NASAL SPRAY NS SCH (10:20)
[2017-05-12] MEDS: APIXABAN 5 MG TABLET PO SCH ×2 (10:20→21:54)
[2017-05-12] MEDS: METOPROLOL SUCCINATE 50 MG TAB.SR.24H (FP) PO SCH (10:20)
--- NOTE | 2017-05-12 12:25 | PN ---
Progress Note (short form) - Note Progress Note: PULMONARY CONSULTATION DICTATED 05/12/17 IMP BILATERAL PNEUMONIA CAP RUL NODULE LIKELY INFLAMMATORY ,?MALIGNANT AFIB HTN ASHD PLAN BROAD SPECTRUM ANTIBIOTICS INHALED BRONCHODILATORS O2 PRN MEDROL X 24HRS CULTURES LEGIONELLA URINARY ANTIGEN F/U CHEST CT TO DOCUMENT RESOLUTION OF INFILTRATES AND RUL NODULE DR SEYMOUR Problem List - Problems (1) A-fib Code(s): I48.91 - UNSPECIFIED ATRIAL FIBRILLATION Qualifiers: Atrial fibrillation type: chronic Qualified Code(s): I48.2 - Chronic atrial fibrillation; I48.2 - Chronic atrial fibrillation; I48.2 - Chronic atrial fibrillation; I48.2 - Chronic atrial fibrillation (2) PNA (pneumonia) Code(s): J18.9 - PNEUMONIA, UNSPECIFIED ORGANISM Qualifiers: Pneumonia type: due to unspecified organism Laterality: bilateral Lung location: lower lobe of lung Qualified Code(s): J18.9 - Pneumonia, unspecified organism; J18.9 - Pneumonia, unspecified organism (3) Lung nodule < 6cm on CT Code(s): R91.1 - SOLITARY PULMONARY NODULE (4) Bronchospasm Code(s): J98.01 - ACUTE BRONCHOSPASM
--- NOTE | 2017-05-12 12:41 | CONS ---
DATE OF CONSULTATION: 05/12/2017 PULMONARY CONSULTATION REFERRING PHYSICIAN: Khris Cole M.D. HISTORY OF PRESENT ILLNESS: The patient is a 66-year-old [place] female with a past medical history of hypertension, [id number]-vorarvisq diabetes mellitus, ASHD, atrial fibrillation (currently maintained on Eliquis), who is a nonsmoker, admitted to [facility] with the complaint of a cough for approximately 10 days. The patient apparently started developing the above symptoms 10 days ago. She denied any fever. She did have some chills. She did have some shortness of breath and bronchospasm. She apparently was placed on a Z-Dipak 10 days ago for the cough, which offered her minimal improvement. She states that the cough is productive of yellow sputum. She denied any hemoptysis. She denied any fever, chest pain or palpitations. She has been noticing increasing shortness of breath as well as bronchospasm. The patient finally presented to the emergency room, as above. Of note is the patient had a chest x-ray as an outpatient, which did not reveal any acute infiltrates or masses. On admission she underwent a CT scan of the chest, which revealed bibasilar infiltrates, right greater than left, and a small nodular opacity, 1 x 0.9 x 0.5 cm, in the anterior segment of the right upper lobe. The patient does not have any prior CT scans for comparison. The patient is a nonsmoker. There is no history of occupational exposure to chemicals or fumes. She denies any history of recent travel. She does have a pet cat at home. She denies any illnesses within the family. PAST MEDICAL HISTORY: Atrial fibrillation, hypertension, diabetes, ashd. SOCIAL HISTORY: Nonsmoker. No occupational exposures. Born in [facility] and moved to the [facility] years ago. REVIEW OF SYSTEMS: Positive cough, positive shortness of breath, positive chest congestion, positive bronchospasm. No chest pain, no palpitations, no nausea, no vomiting, no hemoptysis, no abdominal pain, no lower extremity edema. CURRENT MEDICATIONS: Zithromax, ceftriaxone, Eliquis, DuoNeb, Toprol, Flonase. PHYSICAL EXAMINATION: General: The patient is a well-developed, well-nourished female, awake, alert, in no acute distress. Vitals: She is currently afebrile. Blood pressure 125/75, respiratory rate 24. O2 saturation is 98% on room air. HEENT: Normocephalic, atraumatic. Neck: Supple. Heart: Irregularly irregular S1, S2. Chest: There are crackles bilaterally, a few scattered bilateral wheezes. Abdomen: Soft. Bowel sounds are positive. Extremities: No cyanosis or edema. DIAGNOSTIC STUDIES: WBC 10.8, hemoglobin 14.4, hematocrit 43.6, platelet count 167,000. INR 1959. VBG 7.47, pCO2 of 32, pO2 of 67. BUN 14, creatinine 0.7. BNP 990. Chest CT: Again noted are bibasilar infiltrates, right greater than left, with a nodular opacity in the right upper lobe. IMPRESSION: 1. Pneumonia, community acquired. 2. Right upper lobe nodular opacity, most likely inflammatory, cannot exclude malignancy. 3. Atrial fibrillation. 4. History of atherosclerotic heart disease. PLAN: Inhaled bronchodilators, supplemental oxygen p.r.n., obtain cultures, give broad-spectrum antibiotics, serum cold agglutinins, Legionella antigen, follow up chest x-ray. Give a short course of prednisone, Solu-Medrol x24 hours. Also obtain follow-up chest CT in 6 weeks to document resolution of infiltrates as well as the the right upper lobe nodule. EDILBERTO SEYMOUR M.D. [id number] MTDD
[2017-05-12] MEDS: AZITHROMYCIN IVPB 500 MG in DEXTROSE 5%-WATER - 250 ML IVPB SCH (12:44)
[2017-05-12] MEDS: methylPREDNISolone NA SUCC 40 MG/1 ML VIAL IVPB SCH ×4 (13:15→21:53)
[2017-05-12] MEDS ORDERED: PNEUMOC 13-VAL CONJ-DIP CRM/PF 0.5 ML DISP.SYRIN IM ONE (17:30)
--- NOTE | 2017-05-12 18:39 | EKG ---
Test Reason : Blood Pressure : / mmHG Vent. Rate : 094 BPM Atrial Rate : 086 BPM P-R Int : 000 ms QRS Dur : 088 ms QT Int : 380 ms P-R-T Axes : 000 056 -34 degrees QTc Int : 475 ms ATRIAL FIBRILLATION NONSPECIFIC T WAVE ABNORMALITY ABNORMAL ECG WHEN COMPARED WITH ECG OF 11-MAY-2017 13:41, Confirmed by UBALDO SUAREZ MD ([id number]) on 05/12/2017 6:39:21 PM Referred By: Shena LOPEZ Confirmed By:UBALDO SUAREZ MD
[2017-05-12] MEDS ORDERED: FLU VACCINE QUAD 60 MCG/0.5 ML (MDV 17-18) IM ONE (19:00)
--- NOTE | 2017-05-12 19:21 | EKG ---
Test Reason : Blood Pressure : / mmHG Vent. Rate : 096 BPM Atrial Rate : 416 BPM P-R Int : 000 ms QRS Dur : 086 ms QT Int : 390 ms P-R-T Axes : 000 034 024 degrees QTc Int : 492 ms ATRIAL FIBRILLATION PROLONGED QT ABNORMAL ECG WHEN COMPARED WITH ECG OF 10-OCT-2016 15:53, NO SIGNIFICANT CHANGE WAS FOUND REPEAT EKG IF CLINICALLY INDICATED Confirmed by UBALDO SUAREZ MD ([id number]) on 05/12/2017 7:21:15 PM Referred By: Confirmed By:UBALDO SUAREZ MD
[2017-05-13] MEDS: methylPREDNISolone NA SUCC 40 MG/1 ML VIAL IVPB SCH ×4 (02:43→22:06)
[2017-05-13] MEDS: ALBUTEROL SO4 2.5/IPRATROPIUM 0.5 INH SOL 3 ML VIAL.NEB. NEB SCH ×3 (06:14→17:59)
--- NOTE | 2017-05-13 09:00 | PN ---
Progress Note, Physician Chief Complaint: C/o SOB, cogh, rales in the chest. History of Present Illness: Chronic a.fib CHF HTN - Current Medication List Current Medications: Active Medications Albuterol/Ipratropium (Duoneb -) 1 amp NEB QIDR [facility] Last Admin: 05/13/17 06:14 Dose: 1 amp Apixaban (Eliquis -) 5 mg PO BID [facility] Last Admin: 05/12/17 21:54 Dose: 5 mg Fluticasone Propionate (Flonase -) 1 spray NS DAILY [facility] Last Admin: 05/12/17 10:20 Dose: 1 spray Ceftriaxone Sodium 1 gm/ (Dextrose) 100 mls @ 200 mls/hr IVPB DAILY [facility] Last Admin: 05/12/17 10:19 Dose: 200 mls/hr Azithromycin 500 mg/ Dextrose 250 mls @ 250 mls/hr IVPB DAILY [facility] Last Admin: 05/12/17 12:44 Dose: 250 mls/hr Methylprednisolone Sodium Succinate (Solu-Medrol -) 40 mg IVPB Q6H-IV [facility] Last Admin: 05/13/17 08:40 Dose: 40 mg Metoprolol Succinate (Toprol Xl -) 50 mg PO DAILY [facility] Last Admin: 05/12/17 10:20 Dose: 50 mg - Objective Vital Signs: Vital Signs Temperature 97.8 F 05/13/17 06:21 Pulse Rate 90 05/13/17 06:21 Respiratory Rate 20 05/13/17 06:21 Blood Pressure 149/80 05/13/17 06:21 O2 Sat by Pulse Oximetry (%) 95 05/12/17 21:00 Constitutional: Yes: Anxious, Mild Distress Eyes: Yes: Conjunctiva Clear, EOM Intact HENT: Yes: Atraumatic, Normocephalic Neck: Yes: Supple, Trachea Midline Cardiovascular: Yes: Pulse Irregular (A.fib) Respiratory: Yes: On Nasal O2, Rales (B/B), SOB Gastrointestinal: Yes: Normal Bowel Sounds, Soft ...Rectal Exam: Yes: Deferred Genitourinary: No: Anuria, Bladder Distention Breast(s): Yes: WNL Extremities: No: Calf Tenderness, Cold, Cyanosis Edema: No Neurological: Yes: Alert, Oriented, Cran Nerves II-XII Intact. No: Aphasia, Asterixis, Ataxia, Confusion, Dysarthria, Facial Droop, Lethargy, Unresponsive, Unsteady Gait, Weakness ...Motor Strength: WNL Psychiatric: Yes: WNL Labs: CBC, BMP 05/12/17 06:00 05/12/17 06:00 Problem List - Problems (1) PNA (pneumonia) Assessment/Plan: CAP multilobar -r/o atypical, pneumococcus etc.vs viral IV ABX -ceftriaxone/Zithromax IV Repeat CXR f/u Code(s): J18.9 - PNEUMONIA, UNSPECIFIED ORGANISM Qualifiers: Pneumonia type: due to unspecified organism Laterality: bilateral Lung location: lower lobe of lung Qualified Code(s): J18.9 - Pneumonia, unspecified organism; J18.9 - Pneumonia, unspecified organism (2) A-fib Assessment/Plan: EKG noted. Rate control, A/c with Eliquis continue. Code(s): I48.91 - UNSPECIFIED ATRIAL FIBRILLATION Qualifiers: Atrial fibrillation type: chronic Qualified Code(s): I48.2 - Chronic atrial fibrillation; I48.2 - Chronic atrial fibrillation; I48.2 - Chronic atrial fibrillation; I48.2 - Chronic atrial fibrillation (3) CHF (congestive heart failure), NYHA class I Assessment/Plan: Follow the patientfor worsening of CHF. Concider KAREN/ARB when BP stable Code(s): I50.9 - HEART FAILURE, UNSPECIFIED Qualifiers: Congestive heart failure type: diastolic Congestive heart failure chronicity: acute on chronic Qualified Code(s): I50.33 - Acute on chronic diastolic (congestive) heart failure; I50.33 - Acute on chronic diastolic (congestive) heart failure; I50.33 - Acute on chronic diastolic ( congestive) heart failure; I50.33 - Acute on chronic diastolic (congestive) heart failure
[2017-05-13] MEDS: APIXABAN 5 MG TABLET PO SCH ×2 (10:49→22:06)
[2017-05-13] MEDS: FLUTICASONE PROP 0.05% 16 GM NASAL SPRAY NS SCH (10:49)
[2017-05-13] MEDS: METOPROLOL SUCCINATE 50 MG TAB.SR.24H (FP) PO SCH (10:49)
[2017-05-13] MEDS: AZITHROMYCIN IVPB 500 MG in DEXTROSE 5%-WATER - 250 ML IVPB SCH (10:49)
--- NOTE | 2017-05-13 12:04 | PN ---
Progress Note, Physician History of Present Illness: pulmonary alert,feeling better,less cough,less congestion - Current Medication List Current Medications: Active Medications Albuterol/Ipratropium (Duoneb -) 1 amp NEB QIDR [facility] Last Admin: 05/13/17 11:02 Dose: 1 amp Apixaban (Eliquis -) 5 mg PO BID [facility] Last Admin: 05/13/17 10:49 Dose: 5 mg Fluticasone Propionate (Flonase -) 1 spray NS DAILY [facility] Last Admin: 05/13/17 10:49 Dose: 1 spray Ceftriaxone Sodium 1 gm/ (Dextrose) 100 mls @ 200 mls/hr IVPB DAILY [facility] Last Admin: 05/12/17 10:19 Dose: 200 mls/hr Azithromycin 500 mg/ Dextrose 250 mls @ 250 mls/hr IVPB DAILY [facility] Last Admin: 05/13/17 10:49 Dose: 250 mls/hr Methylprednisolone Sodium Succinate (Solu-Medrol -) 40 mg IVPB Q6H-IV [facility] Last Admin: 05/13/17 08:40 Dose: 40 mg Metoprolol Succinate (Toprol Xl -) 50 mg PO DAILY [facility] Last Admin: 05/13/17 10:49 Dose: 50 mg - Objective Vital Signs: Vital Signs Temperature 97.9 F 05/13/17 10:00 Pulse Rate 52 L 05/13/17 10:32 Respiratory Rate 20 05/13/17 10:00 Blood Pressure 134/84 05/13/17 10:00 O2 Sat by Pulse Oximetry (%) 95 05/13/17 10:32 Constitutional: Yes: Well Nourished, Calm Eyes: Yes: WNL HENT: Yes: WNL Neck: Yes: WNL Cardiovascular: Yes: Pulse Irregular, S1, S2 Respiratory: Yes: Rales, Wheezes (few scattered nancie wheezes,nancie crackles) Gastrointestinal: Yes: Normal Bowel Sounds, Soft Extremities: Yes: WNL Edema: No Labs: CBC, BMP 05/12/17 06:00 05/12/17 06:00 Problem List - Problems (1) A-fib Code(s): I48.91 - UNSPECIFIED ATRIAL FIBRILLATION Qualifiers: Atrial fibrillation type: chronic Qualified Code(s): I48.2 - Chronic atrial fibrillation; I48.2 - Chronic atrial fibrillation; I48.2 - Chronic atrial fibrillation; I48.2 - Chronic atrial fibrillation (2) PNA (pneumonia) Code(s): J18.9 - PNEUMONIA, UNSPECIFIED ORGANISM Qualifiers: Pneumonia type: due to unspecified organism Laterality: bilateral Lung location: lower lobe of lung Qualified Code(s): J18.9 - Pneumonia, unspecified organism; J18.9 - Pneumonia, unspecified organism (3) Lung nodule < 6cm on CT Code(s): R91.1 - SOLITARY PULMONARY NODULE (4) Bronchospasm Code(s): J98.01 - ACUTE BRONCHOSPASM Assessment/Plan IMP BILATERAL PNEUMONIA CAP RUL NODULE LIKELY INFLAMMATORY ,?MALIGNANT AFIB HTN ASHD PLAN BROAD SPECTRUM ANTIBIOTICS INHALED BRONCHODILATORS O2 PRN CONTINUE MEDROL F/U CHEST CT TO DOCUMENT RESOLUTION OF INFILTRATES AND RUL NODULE DR SEYMOUR Problem List - Problems (1) A-fib Code(s): I48.91 - UNSPECIFIED ATRIAL FIBRILLATION Qualifiers: Atrial fibrillation type: chronic Qualified Code(s): I48.2 - Chronic atrial fibrillation; I48.2 - Chronic atrial fibrillation; I48.2 - Chronic atrial fibrillation; I48.2 - Chronic atrial fibrillation (2) PNA (pneumonia) Code(s): J18.9 - PNEUMONIA, UNSPECIFIED ORGANISM Qualifiers: Pneumonia type: due to unspecified organism Laterality: bilateral Lung location: lower lobe of lung Qualified Code(s): J18.9 - Pneumonia, unspecified organism; J18.9 - Pneumonia, unspecified organism (3) Lung nodule < 6cm on CT Code(s): R91.1 - SOLITARY PULMONARY NODULE (4) Bronchospasm Code(s): J98.01 - ACUTE BRONCHOSPASM
[2017-05-13] MEDS: CEFTRIAXONE 1 GM in DEXTROSE 5%-WATER 100 ML IVPB SCH (12:11)
[2017-05-13] MEDS ORDERED: PT OWN MED DRAWER 7, Y5N ONE (19:32)
[2017-05-14] MEDS: methylPREDNISolone NA SUCC 40 MG/1 ML VIAL IVPB SCH ×2 (02:13→08:30)
[2017-05-14] MEDS: ALBUTEROL SO4 2.5/IPRATROPIUM 0.5 INH SOL 3 ML VIAL.NEB. NEB SCH ×4 (06:30→17:10)
[2017-05-14] MEDS ORDERED: FUROSEMIDE 40 MG/4 ML INJECTABLE VIAL IVPUSH ONE (08:14)
--- NOTE | 2017-05-14 08:19 | PN ---
Progress Note (short form) - Note Progress Note: C/o SOB, cough, BARONE, weakness, rales in the chest Vital Signs Temp 97.9 F 05/14/17 06:00 Pulse 87 05/14/17 06:00 Resp 20 05/14/17 06:00 BP 134/76 05/14/17 06:00 Pulse Ox 95 05/13/17 20:21 Intake & Output 05/13/17 05/13/17 05/14/17 11:59 23:59 11:59 Intake Total 1000 630 220 Output Total 500 Balance 1000 130 220 Weight 175 lb 4 oz Intake: IVPB 400 50 100 Oral 600 580 120 Output: Urine 500 Void 500 Other: Voiding Method Toilet Toilet # Unmeasured Voids Void 1 2 Bowel Movement No No Awake, alert, mild distress Neck-no JVD Lungs- b/l rales, rhonchi Heart S1S2 irregular, irregular Abdomen soft, NT Ext-no edema CXR-no significant change Current Active Problems Problem Status Diagnosed A-fib Acute Bronchospasm Acute CHF (congestive heart failure), NYHA class I Acute Lung nodule < 6cm on CT Acute PNA (pneumonia) Acute Plan IV Ceftriaxone/Zithromax x24 hrs, then will switch to PO Continue nebs D/c Solumedrol, IV Lasix x1 Problem List - Problems (1) PNA (pneumonia) Code(s): J18.9 - PNEUMONIA, UNSPECIFIED ORGANISM Qualifiers: Pneumonia type: due to unspecified organism Laterality: bilateral Lung location: lower lobe of lung Qualified Code(s): J18.9 - Pneumonia, unspecified organism; J18.9 - Pneumonia, unspecified organism (2) A-fib Code(s): I48.91 - UNSPECIFIED ATRIAL FIBRILLATION Qualifiers: Atrial fibrillation type: chronic Qualified Code(s): I48.2 - Chronic atrial fibrillation; I48.2 - Chronic atrial fibrillation; I48.2 - Chronic atrial fibrillation; I48.2 - Chronic atrial fibrillation (3) CHF (congestive heart failure), NYHA class I Code(s): I50.9 - HEART FAILURE, UNSPECIFIED Qualifiers: Congestive heart failure type: diastolic Congestive heart failure chronicity: acute on chronic Qualified Code(s): I50.33 - Acute on chronic diastolic (congestive) heart failure; I50.33 - Acute on chronic diastolic (congestive) heart failure; I50.33 - Acute on chronic diastolic ( congestive) heart failure; I50.33 - Acute on chronic diastolic (congestive) heart failure
[2017-05-14] MEDS ORDERED: PT OWN MED DRAWER 7, Y5N ONE ×2 (09:57→22:41)
[2017-05-14] MEDS: AZITHROMYCIN IVPB 500 MG in DEXTROSE 5%-WATER - 250 ML IVPB SCH (09:59)
[2017-05-14] MEDS: FLUTICASONE PROP 0.05% 16 GM NASAL SPRAY NS SCH (09:59)
[2017-05-14] MEDS: METOPROLOL SUCCINATE 50 MG TAB.SR.24H (FP) PO SCH (09:59)
[2017-05-14] MEDS: APIXABAN 5 MG TABLET PO SCH ×2 (09:59→22:51)
[2017-05-14] MEDS: CEFTRIAXONE 1 GM in DEXTROSE 5%-WATER 100 ML IVPB SCH (12:54)
--- NOTE | 2017-05-14 13:18 | PN ---
Progress Note, Physician History of Present Illness: pulmonary alewrt,oob-chair,less dyspneic,less cough - Current Medication List Current Medications: Active Medications Albuterol/Ipratropium (Duoneb -) 1 amp NEB QIDR [facility] Last Admin: 05/14/17 11:20 Dose: 1 amp Apixaban (Eliquis -) 5 mg PO BID [facility] Last Admin: 05/14/17 09:59 Dose: 5 mg Fluticasone Propionate (Flonase -) 1 spray NS DAILY [facility] Last Admin: 05/14/17 09:59 Dose: 1 spray Ceftriaxone Sodium 1 gm/ (Dextrose) 100 mls @ 200 mls/hr IVPB DAILY [facility] Last Admin: 05/14/17 12:54 Dose: 200 mls/hr Azithromycin 500 mg/ Dextrose 250 mls @ 250 mls/hr IVPB DAILY [facility] Last Admin: 05/14/17 09:59 Dose: 250 mls/hr Metoprolol Succinate (Toprol Xl -) 50 mg PO DAILY [facility] Last Admin: 05/14/17 09:59 Dose: 50 mg - Objective Vital Signs: Vital Signs Temperature 97.8 F 05/14/17 08:37 Pulse Rate 92 H 05/14/17 12:29 Respiratory Rate 18 05/14/17 08:37 Blood Pressure 141/68 05/14/17 08:37 O2 Sat by Pulse Oximetry (%) 97 05/14/17 12:29 Constitutional: Yes: Well Nourished, Calm Eyes: Yes: WNL HENT: Yes: WNL Neck: Yes: WNL Cardiovascular: Yes: Pulse Irregular, S1, S2 Respiratory: Yes: Rales (scattered nancie crackles,with wheezes) Gastrointestinal: Yes: Normal Bowel Sounds, Soft Extremities: Yes: WNL Edema: No Labs: CBC, BMP Problem List - Problems (1) A-fib Code(s): I48.91 - UNSPECIFIED ATRIAL FIBRILLATION Qualifiers: Atrial fibrillation type: chronic Qualified Code(s): I48.2 - Chronic atrial fibrillation; I48.2 - Chronic atrial fibrillation; I48.2 - Chronic atrial fibrillation; I48.2 - Chronic atrial fibrillation (2) PNA (pneumonia) Code(s): J18.9 - PNEUMONIA, UNSPECIFIED ORGANISM Qualifiers: Pneumonia type: due to unspecified organism Laterality: bilateral Lung location: lower lobe of lung Qualified Code(s): J18.9 - Pneumonia, unspecified organism; J18.9 - Pneumonia, unspecified organism (3) Lung nodule < 6cm on CT Code(s): R91.1 - SOLITARY PULMONARY NODULE (4) Bronchospasm Code(s): J98.01 - ACUTE BRONCHOSPASM Assessment/Plan IMP BILATERAL PNEUMONIA CAP RUL NODULE LIKELY INFLAMMATORY ,?MALIGNANT AFIB HTN ASHD PLAN BROAD SPECTRUM ANTIBIOTICS INHALED BRONCHODILATORS O2 PRN F/U CHEST CT TO DOCUMENT RESOLUTION OF INFILTRATES AND RUL NODULE DR SEYMOUR Problem List - Problems (1) A-fib Code(s): I48.91 - UNSPECIFIED ATRIAL FIBRILLATION Qualifiers: Atrial fibrillation type: chronic Qualified Code(s): I48.2 - Chronic atrial fibrillation; I48.2 - Chronic atrial fibrillation; I48.2 - Chronic atrial fibrillation; I48.2 - Chronic atrial fibrillation (2) PNA (pneumonia) Code(s): J18.9 - PNEUMONIA, UNSPECIFIED ORGANISM Qualifiers: Pneumonia type: due to unspecified organism Laterality: bilateral Lung location: lower lobe of lung Qualified Code(s): J18.9 - Pneumonia, unspecified organism; J18.9 - Pneumonia, unspecified organism (3) Lung nodule < 6cm on CT Code(s): R91.1 - SOLITARY PULMONARY NODULE (4) Bronchospasm Code(s): J98.01 - ACUTE BRONCHOSPASM
[2017-05-15] MEDS: ALBUTEROL SO4 2.5/IPRATROPIUM 0.5 INH SOL 3 ML VIAL.NEB. NEB SCH ×3 (00:05→11:15)
[2017-05-15] MEDS ORDERED: PT OWN MED DRAWER 7, Y5N ONE (09:06)
[2017-05-15] MEDS: FLUTICASONE PROP 0.05% 16 GM NASAL SPRAY NS SCH (09:17)
[2017-05-15] MEDS: AZITHROMYCIN IVPB 500 MG in DEXTROSE 5%-WATER - 250 ML IVPB SCH (09:17)
[2017-05-15] MEDS: METOPROLOL SUCCINATE 50 MG TAB.SR.24H (FP) PO SCH (09:17)
[2017-05-15] MEDS: APIXABAN 5 MG TABLET PO SCH (09:17)
[2017-05-15 09:26] VITALS: BP 144/86; TEMP 97.8
[2017-05-15] MEDS ORDERED: CEFTRIAXONE 1 G/50 ML PREMIX 50 ML IVPB SCH (10:00)
[2017-05-15 11:56] VITALS: PULSE 93
--- NOTE | 2017-05-15 12:26 | PN ---
Progress Note (short form) - Note Progress Note: Feels better after Lasix yesterday., less rales.No SOB. Afebrile. Cold aggl-neg Vital Signs Temp 97.8 F 05/15/17 09:26 Pulse 93 H 05/15/17 11:56 Resp 18 05/15/17 09:26 BP 144/86 05/15/17 09:26 Pulse Ox 97 05/15/17 11:56 Intake & Output 05/14/17 05/15/17 05/15/17 23:59 11:59 23:59 Intake Total 780 300 Balance 780 300 Weight 178 lb 3 oz Intake: IVPB 50 Oral 730 300 Other: Voiding Method Toilet Toilet # Unmeasured Voids Void 2 2 Bowel Movement Yes # Bowel Movements 1 Neck-no JVD Lungs- less RLL/LLL crackles Abdomen soft, nT EXT-no CCE Laboratory Results - last 24 hr 05/13/17 10:00 Cold Agglutinins Negative Current Active Problems Problem Status Diagnosed A-fib Acute Bronchospasm Acute CHF (congestive heart failure), NYHA class I Acute Lung nodule < 6cm on CT Acute PNA (pneumonia) Acute Plan change abx to Ceftin BID 500 mg F/u at the office in 1 week Problem List - Problems (1) PNA (pneumonia) Code(s): J18.9 - PNEUMONIA, UNSPECIFIED ORGANISM Qualifiers: Pneumonia type: due to unspecified organism Laterality: bilateral Lung location: lower lobe of lung Qualified Code(s): J18.9 - Pneumonia, unspecified organism; J18.9 - Pneumonia, unspecified organism (2) A-fib Code(s): I48.91 - UNSPECIFIED ATRIAL FIBRILLATION Qualifiers: Atrial fibrillation type: chronic Qualified Code(s): I48.2 - Chronic atrial fibrillation; I48.2 - Chronic atrial fibrillation; I48.2 - Chronic atrial fibrillation; I48.2 - Chronic atrial fibrillation (3) CHF (congestive heart failure), NYHA class I Code(s): I50.9 - HEART FAILURE, UNSPECIFIED Qualifiers: Congestive heart failure type: diastolic Congestive heart failure chronicity: acute on chronic Qualified Code(s): I50.33 - Acute on chronic diastolic (congestive) heart failure; I50.33 - Acute on chronic diastolic (congestive) heart failure; I50.33 - Acute on chronic diastolic ( congestive) heart failure; I50.33 - Acute on chronic diastolic (congestive) heart failure
--- NOTE | 2017-05-15 12:27 | DS ---
Physical Examination Vital Signs: Vital Signs Temperature 97.8 F 05/15/17 09:26 Pulse Rate 93 H 05/15/17 11:56 Respiratory Rate 18 05/15/17 09:26 Blood Pressure 144/86 05/15/17 09:26 O2 Sat by Pulse Oximetry (%) 97 05/15/17 11:56 Constitutional: Yes: Well Nourished, No Distress, Anxious Eyes: Yes: Conjunctiva Clear, EOM Intact HENT: Yes: Atraumatic, Normocephalic Neck: Yes: Supple, Trachea Midline. No: Decreased ROM, Lymphadenopathy Cardiovascular: Yes: Pulse Irregular. No: JVD Respiratory: Yes: Cough, Rales (few B/L) Gastrointestinal: Yes: Normal Bowel Sounds, Soft ...Rectal Exam: Yes: Deferred Renal/: No: Anuria Breast(s): Yes: WNL Musculoskeletal: No: Back Pain Extremities: No: Calf Tenderness, Cold, Cyanosis Edema: No Peripheral Pulses WNL: Yes Integumentary: Yes: WNL Neurological: Yes: WNL, Alert, Oriented. No: Aphasia, Dysarthria ...Motor Strength: WNL Psychiatric: Yes: WNL Labs: CBC, BMP 05/12/17 06:00 05/12/17 06:00 Discharge Summary Reason For Visit: LEUKOCYTOSIS,PNEUMONIA Current Active Problems A-fib (Acute) Bronchospasm (Acute) CHF (congestive heart failure), NYHA class I (Acute) Lung nodule < 6cm on CT (Acute) PNA (pneumonia) (Acute) Condition: Stable - Instructions Referrals: Khris Cole MD [Primary Care Provider] - Disposition: HOME - Home Medications Comprehensive Discharge Medication List: Ambulatory Orders Apixaban [Eliquis] 5 mg PO BID 10/10/16 Metoprolol Succinate [Toprol Xl] 50 mg PO DAILY 10/10/16 Fluticasone Prop 0.05% Nasal [Flonase -] 1 spray NS DAILY 05/11/17
== END 2017-05-15 13:17 | disposition home or self-care (01) | DRG 291 ==
LOC: JER 11:56 → JERBED 14:54 → OBSVTOIN 16:51 → J5S 17:15
PROVIDERS: ADMIT Internal Medicine; ATTEND Internal Medicine
DX: I11.0 Hypertensive heart disease with heart failure (principal); J18.9 Pneumonia, unspecified organism; I50.33 Acute on chronic diastolic (congestive) heart failure; Z79.01 Long term (current) use of anticoagulants; E11.9 Type 2 diabetes mellitus without complications; I25.10 Atherosclerotic heart disease of native coronary artery without angina pectoris; I48.2 Chronic atrial fibrillation; R91.1 Solitary pulmonary nodule; J98.01 Acute bronchospasm
CPT/HCPCS: 36415; 71020-TC; 71250-TC; 80053; 81003; 81015; 82803; 83605; 83880; 84100; 84484; 85025; 86157; 87040; 87086; 87804; 87899; 90670; 90688; 93005; 93010; 94640; 99283-25; G0378